=== PATIENT | male | born 1960 | race Asian ===

== ENCOUNTER → 2020-01-01 | Outpatient (CLI) | payer BC ==
[~2020-01-01] MED LIST: ALBU18HF INH; Dulera INH; MONT10TA6 PO; atorvastatin PO
[2020-01-01 10:01] LABS: BASOPHILS # (AUTO) 0.04 x10^3/uL (0-0.1); BASOPHILS % (AUTO) 1 % (0-1); EOSINOPHILS # (AUTO) 0.26 x10^3/uL (0-0.4); EOSINOPHILS % (AUTO) 3 % (1-7); LYMPHOCYTES # (AUTO) 1.88 x10^3/uL (1-3.4); LYMPHOCYTES % (AUTO) 22 % (22-44); MD NO; MEAN CORPUSCULAR HEMOGLOBIN 32.8 pg (27.5-34.5); MEAN CORPUSCULAR HGB CONC 33.8 g/dL (33.2-36.2); MEAN PLATELET VOLUME 7.6 fL (7.4-10.4); MONOCYTES # (AUTO) 0.66 x10^3/uL (0.2-0.8); MONOCYTES % (AUTO) 8 % (2-9); NEUTROPHILS # (AUTO) 5.74 x10^3/uL (1.8-6.8); NEUTROPHILS % (AUTO) 67 % (42-75); PLATELET COUNT 241 x10^3/uL (130-400); RED BLOOD COUNT 5.23 x10^6/uL (4.38-5.82); RED CELL DISTRIBUTION WIDTH 13.4 % (9.4-14.8)
[2020-01-01 10:09] LABS: ANION GAP 3 mmol/L (5-15); CHLORIDE 109 mmol/L (98-107); CREATININE 1.08 mg/dL (0.7-1.3)
[2020-01-01 10:10] LABS: INTERNATIONAL NORMALIZED RATIO 0.97 (0.93-1.1)
== END | disposition home or self-care (01) ==
LOC: STAR 08:45 → MERGE 08:45
PROVIDERS: ATTEND Neurological Surgery
DX: Z01.818 Encounter for other preprocedural examination (principal); M48.062 Spinal stenosis, lumbar region with neurogenic claudication
CPT/HCPCS: 36415; 71046; 80048; 85025; 85610; 85730; 93005

== ENCOUNTER 2020-01-15 13:53 | Day surgery (SDC) | payer BC ==
[~2020-01-15] VITALS: Ht 175.3 cm; Wt 71.8 kg
[~2020-01-15 13:53] MED LIST changes: +BACITRACIN 50,000 UNIT ONE; +BUPIVACAINE/EPI 0.5% 1:200K ONE
[2020-01-15] MEDS ORDERED: CHLORHEXIDINE 15 ML UDC ONE (14:48)
[2020-01-15] MEDS ORDERED: PROPOFOL 10 MG/ML, 20ML ONE (14:49)
[2020-01-15] MEDS ORDERED: MIDAZOLAM 1 MG/ML, 2ML ONE (14:49)
[2020-01-15] MEDS ORDERED: SUCCINYLCHOLINE 20 MG/ML, 10ML ONE (14:49)
[2020-01-15] MEDS ORDERED: DEXAMETHASONE 4 MG/ML, 1ML ONE (14:49)
[2020-01-15] MEDS ORDERED: ONDANSETRON 2MG/ML, 2ML ONE (14:49)
[2020-01-15] MEDS ORDERED: FENTANYL PF 100 MCG/2ML ONE ×2 (14:49→17:51)
[2020-01-15] MEDS ORDERED: CEFAZOLIN 1,000 MG ONE (14:49)
[2020-01-15] MEDS ORDERED: ROCURONIUM 10MG/ML,5ML ONE (14:49)
[2020-01-15] MEDS ORDERED: NEOSTIGMINE 1 MG/ML, 10ML ONE (14:49)
[2020-01-15] MEDS ORDERED: GLYCOPYRROLATE 0.2MG/1ML, 5ML ONE (14:49)
[2020-01-15] MEDS ORDERED: MEPERIDINE/PF 25MG/0.5ML IVPush PRN (15:00)
[2020-01-15] MEDS ORDERED: OXYcodone 5 MG/5 ML ORAL.SOL UDC PO PRN (15:00)
[2020-01-15] MEDS ORDERED: PROMETHAZINE 25 MG/ML, 1ML IVPush PRN (15:00)
[2020-01-15] MEDS ORDERED: HYDROcodone/APAP 7.5-325MG/15ML UDC PO PRN (15:00)
[2020-01-15] MEDS ORDERED: METHOCARBAMOL 1,000 MG in DEXTROSE 5% 100 ML IV PRN (15:00)
[2020-01-15] MEDS ORDERED: HYDROmorphone 1 MG/ML, 1ML INJ IVPush PRN (15:00)
[2020-01-15] MEDS ORDERED: PHENYLEPHRINE 10 MG/ML ONE (15:59)
[2020-01-15] MEDS ORDERED: LIDOCAINE PF 2%, 5ML ONE (15:59)
[2020-01-15] MEDS ORDERED: BACITRACIN 50,000 UNIT IRRIG ONE (16:29)
[2020-01-15] MEDS ORDERED: BUPIVACAINE/EPI 0.5% 1:200K INFIL ONE (16:29)
[2020-01-15] MEDS ORDERED: OXYcodone 5 MG/5 ML ORAL.SOL UDC ONE (17:51)
[2020-01-15] MEDS: FENTANYL PF 100 MCG/2ML IV PRN ×2 (17:52→18:02)
[2020-01-15] MEDS ORDERED: ONDANSETRON 2MG/ML, 2ML IV PRN (19:30)
[2020-01-15] MEDS ORDERED: PROMETHAZINE 25 MG/ML, 1ML IM PRN (19:30)
[2020-01-15] MEDS ORDERED: MAGNESIUM HYDROXIDE 8%, 30ML UDC PO PRN (19:30)
[2020-01-15] MEDS ORDERED: BISACODYL 10 MG SUPP PR PRN (19:30)
[2020-01-15] MEDS ORDERED: ALBUTEROL HFA 90 MCG/SPRAY INH PRN (19:30)
[2020-01-15] MEDS ORDERED: OXYcodone IR 5MG TABLET PO PRN (19:30)
[2020-01-15] MEDS ORDERED: NS + 20MEQ KCL 1,000 ML IV SCH (19:30)
[2020-01-15] MEDS ORDERED: LABETALOL 5MG/ML, 20ML IV PRN (19:30)
[2020-01-15] MEDS ORDERED: HYDROcodone/APAP 5/325 TABLET PO PRN (19:30)
[2020-01-15] MEDS ORDERED: CEFAZOLIN PMX 1GM/50ML 50 ML IVPB SCH (19:30)
[2020-01-15] MEDS ORDERED: CYCLOBENZAPRINE 10 MG TABLET PO PRN (20:00)
[2020-01-15] MEDS ORDERED: INSTRUCTION SEE COMMENTS XX ONE (20:00)
[2020-01-16] MEDS ORDERED: METHOCARBAMOL 750 MG TABLET PO PRN (02:00)
[2020-01-16] MEDS ORDERED: SENNA/DOCUSATE TABLET PO SCH (09:00)
[2020-01-16] MEDS ORDERED: MONTELUKAST 10 MG TABLET PO SCH (09:00)
== END 2020-01-15 22:15 | disposition home or self-care (01) ==
LOC: OUT 13:53 → 4NE 18:51 → OUT 22:15
PROVIDERS: ATTEND Neurological Surgery
DX: M48.07 Spinal stenosis, lumbosacral region (principal); M54.17 Radiculopathy, lumbosacral region; J45.909 Unspecified asthma, uncomplicated; E78.00 Pure hypercholesterolemia, unspecified; I25.10 Atherosclerotic heart disease of native coronary artery without angina pectoris; I25.2 Old myocardial infarction; Z20.828 Contact with and (suspected) exposure to other viral communicable diseases; Z79.899 Other long term (current) drug therapy; Z72.89 Other problems related to lifestyle; Z95.818 Presence of other cardiac implants and grafts; Z87.891 Personal history of nicotine dependence
CPT/HCPCS: 36415; 63047; 63048; 72100; 87635; J0330; J0690; J1100; J2250; J2370; J2405; J2704; J2710; J2800; J3010; G0378

== ENCOUNTER → 2020-04-28 | Outpatient (CLI) | payer BC ==
[~2020-04-28] MED LIST changes: -BACITRACIN 50,000 UNIT ONE; -BUPIVACAINE/EPI 0.5% 1:200K ONE; +OMNIPAQUE 350 MG/ML, 100ML BOTTLE ONE
== END | disposition home or self-care (01) ==
LOC: RAD 10:51
PROVIDERS: ATTEND Urology
DX: C61 Malignant neoplasm of prostate (principal)
CPT/HCPCS: 74177; 78306; A9503; Q9967

== ENCOUNTER → 2020-06-09 | Outpatient (CLI) | payer BC ==
[~2020-06-09] MED LIST changes: -OMNIPAQUE 350 MG/ML, 100ML BOTTLE ONE
== END | disposition home or self-care (01) ==
LOC: ROC 07:13
PROVIDERS: ATTEND Radiology Radiation Oncology
DX: C61 Malignant neoplasm of prostate (principal)
CPT/HCPCS: 99214; G0463

== ENCOUNTER → 2020-06-10 | Outpatient (CLI) | payer BC ==
[~2020-06-10] MED LIST changes: +LEUPROLIDE (ELIGARD) 22.5 MG SYR SQ ONE
== END | disposition home or self-care (01) ==
LOC: ROC 11:04
PROVIDERS: ATTEND Radiology Radiation Oncology
DX: Z51.11 Encounter for antineoplastic chemotherapy (principal); C61 Malignant neoplasm of prostate
CPT/HCPCS: 96402; J9217

== ENCOUNTER 2020-07-06 07:24 | Outpatient (CLI) | payer BC ==
[~2020-07-06 07:24] MED LIST changes: -LEUPROLIDE (ELIGARD) 22.5 MG SYR SQ ONE
[2020-07-06] MEDS ORDERED: LIDOCAINE/PF 1%, 30ML IV ONE (08:00)
[2020-07-06] MEDS ORDERED: MIDAZOLAM 1 MG/ML, 5ML IVPush ONE (08:00)
[2020-07-06] MEDS ORDERED: FENTANYL PF 100 MCG/2ML IVPush ONE (08:00)
== END 2020-07-06 23:59 | disposition home or self-care (01) ==
LOC: ROC 07:24
PROVIDERS: ATTEND Radiology Radiation Oncology
DX: C61 Malignant neoplasm of prostate (principal); F17.210 Nicotine dependence, cigarettes, uncomplicated; Z79.899 Other long term (current) drug therapy
CPT/HCPCS: 55876; 76942; 77332; 99156; A4648; J2250; J3010; J3490

== ENCOUNTER 2020-09-10 07:17 | Outpatient (CLI) | payer BC ==
[2020-09-10] MEDS ORDERED: LEUPROLIDE (ELIGARD) 22.5 MG SYR SQ ONE (08:30)
== END 2020-09-10 23:59 | disposition home or self-care (01) ==
LOC: ROC 07:17
PROVIDERS: ATTEND Radiology Radiation Oncology
DX: Z51.11 Encounter for antineoplastic chemotherapy (principal); C61 Malignant neoplasm of prostate; Z79.899 Other long term (current) drug therapy; Z87.891 Personal history of nicotine dependence
CPT/HCPCS: 96402; J9217

== ENCOUNTER 2020-12-16 07:32 | Outpatient (CLI) | payer BC ==
[2020-12-16] MEDS ORDERED: LEUPROLIDE (ELIGARD) 22.5 MG SYR SQ ONE (09:00)
== END 2020-12-16 23:59 | disposition home or self-care (01) ==
LOC: ROC 07:32
PROVIDERS: ATTEND Radiology Radiation Oncology
DX: Z51.11 Encounter for antineoplastic chemotherapy (principal); C61 Malignant neoplasm of prostate; E78.5 Hyperlipidemia, unspecified
CPT/HCPCS: 96402; 99213; J9217; G0463

== ENCOUNTER 2020-12-29 11:17 | Outpatient (CLI) | payer BC | END 2020-12-29 23:59 | disposition home or self-care (01) | LOC: CFH 11:17 | PROVIDERS: ATTEND Radiology Radiation Oncology | DX: C61 Malignant neoplasm of prostate (principal) | CPT/HCPCS: 77080 ==

== ENCOUNTER 2021-01-12 12:42 | Emergency (ER) | payer BC ==
[~2021-01-12] VITALS: Ht 175.3 cm; Wt 72.1 kg
[2021-01-12 12:50] VITALS: BP 125/76
[2021-01-12 13:33] LABS: BASOPHILS % (AUTO) 1 % (0-1); EOSINOPHILS % (AUTO) 2 % (1-7); LYMPHOCYTES % (AUTO) 16 % (22-44); MEAN CORPUSCULAR HEMOGLOBIN 33.2 pg (27.5-34.5); MEAN CORPUSCULAR HGB CONC 34.6 g/dL (33.2-36.2); MEAN PLATELET VOLUME 7.3 fL (7.4-10.4); MONOCYTES % (AUTO) 8 % (2-9); NEUTROPHILS % (AUTO) 73 % (42-75); PLATELET COUNT 211 x10^3/uL (130-400); RED BLOOD COUNT 4.52 x10^6/uL (4.38-5.82); RED CELL DISTRIBUTION WIDTH 12.2 % (9.4-14.8)
[2021-01-12 13:44] LABS: ALBUMIN 3.7 g/dL (3.4-5.0); ANION GAP 8 mmol/L (5-15); CALCIUM 9.4 mg/dL (8.5-10.1); CHLORIDE 107 mmol/L (98-107)
[2021-01-12 13:48] LABS: ALANINE AMINOTRANSFERASE 38 U/L (12-78); ALKALINE PHOSPHATASE 71 U/L (45-117); BILIRUBIN,TOTAL 0.5 mg/dL (0.2-1.0); CREATININE 0.97 mg/dL (0.7-1.3); TOTAL PROTEIN 7.9 g/dL (6.4-8.2)
--- NOTE | 2021-01-12 15:31 | NUR ---
no answer at [id number]
--- NOTE | 2021-01-12 15:57 | NUR ---
NA X2
== END 2021-01-12 16:21 | disposition left against medical advice (07) ==
LOC: ED 14:00
DX: U07.1 COVID-19 (principal); B34.9 Viral infection, unspecified
CPT/HCPCS: 36415; 71045; 80053; 85025; 99284; U0003; U0005